=== PATIENT | female | born 1990 ===

== ENCOUNTER 2017-11-16 08:56 | Emergency (ER) | payer OTHER ==
[2017-11-16 09:16] VITALS: BP 136/80; PULSE 94; RESP 20; TEMP 99.7; O2SAT 99
[2017-11-16] MEDS ORDERED: Amoxicillin-Clav 875-125 mg Tab PO STA (09:34)
[2017-11-16] MEDS ORDERED: Amoxicillin-Clav 875-125 mg Tab PO ONE (09:42)
--- NOTE | 2017-11-16 09:47 | C.PDOC ---
History Of Present Illness 27 y/o female presents to the ER complaining of fever and throat pain which has been present for the past 2 days. Patient denies having nausea, vomiting, and diarrhea. Patient does not have any other complaints. Time Seen by Provider: 11/16/17 09:28 Chief Complaint (Nursing): Fever History Per: Patient History/Exam Limitations: no limitations Onset/Duration Of Symptoms: Days Current Symptoms Are (Timing): Still Present Associated Symptoms: Fever, Sore Throat Severity: Moderate Past Medical History Reviewed: Historical Data, Nursing Documentation, Vital Signs Vital Signs: Last Vital Signs Temp 99.7 F H 11/16/17 09:12 Pulse 94 H 11/16/17 09:12 Resp 20 11/16/17 09:12 BP 136/80 11/16/17 09:12 Pulse Ox 99 11/16/17 09:47 - Medical History PMH: Asthma Surgical History: No Surg Hx Family History: States: No Known Family Hx - Social History Hx Alcohol Use: Yes Hx Substance Use: No - Immunization History Hx Tetanus Toxoid Vaccination: Yes Hx Influenza Vaccination: No Hx Pneumococcal Vaccination: No Review Of Systems Except As Marked, All Systems Reviewed And Found Negative. Constitutional: Positive for: Fever ENT: Positive for: Throat Pain Gastrointestinal: Negative for: Nausea, Vomiting, Diarrhea Physical Exam - Physical Exam Appears: Non-toxic, No Acute Distress Skin: Normal Color, Warm Head: Atraumatic, Normacephalic Eye(s): bilateral: Normal Inspection, PERRL Ear(s): Bilateral: Normal Nose: Normal Oral Mucosa: Moist Throat: No Erythema, No Exudate, Other (enlarged right tonsil area, edema in right tonsil which comes to midline,no abscess, no hot potato voice ) Neck: Supple Chest: Symmetrical Cardiovascular: Rhythm Regular Respiratory: Normal Breath Sounds, No Accessory Muscle Use, No Rales, No Rhonchi , No Wheezing, Other (airway is patent) Extremity: Normal ROM Neurological/Psych: Oriented x3, Normal Speech, Normal Cognition, Normal Motor, Normal Sensation ED Course And Treatment O2 Sat by Pulse Oximetry: 99 (RA) Pulse Ox Interpretation: Normal Progress Note: Patient given Augmentin, Ultram, and PredniSONE. Medical Decision Making Medical Decision Making: tonsillitis vs early R peritonsillar abscess no hot potatoe voice airway normal return in AM for re-eval. Disposition Doctor Will See Patient In The: Office Counseled Patient/Family Regarding: Studies Performed, Diagnosis - Disposition Referrals: [facility] at [facility] [Outside] Jacob Fox MD [Staff Provider] - Disposition: HOME/ ROUTINE Disposition Time: 09:46 Condition: GOOD Additional Instructions: Augmentin dos veces al ector por 7 gilmore. Prednisona 40 mg diario por 4 gilmore mas- baja inflammacion Tramadol 50 mg (narcotico) 1-2 tabletas cada 4-6 horas deshaun necessario Pepcid 20 mg (baja acides del estomago) previene irritacion del estomago debido al Prednisona. Regressa manana pra re-evaluacion en el [facility] con Dr. Mckinley Puede seguir con Dr. Fox (otolaryngologo) especialista de las amigdalas- LLama para hacer rola. Regressa immediamente si tiene difficultad respirando por la garganta. Prescriptions: Amoxicillin/Clavulanate [Augmentin 875 MG-125 MG] 1 tab PO BID #13 tab Prednisone [Deltasone] 40 mg PO DAILY #8 tablet traMADol [Ultram] 50 mg PO Q6H PRN #20 tab PRN Reason: pain Instructions: Peritonsillar Abscess (ED), Tonsillitis (ED) Forms: [employer] (Turkish) Print Language: BOLIVIAN - Clinical Impression Clinical Impression: Tonsillitis - Scribe Statement The provider has reviewed the documentation as recorded by the Tyrese Butterfield Provider Attestation: All medical record entries made by the Carolynibe were at my direction and personally dictated by me. I have reviewed the chart and agree that the record accurately reflects my personal performance of the history, physical exam, medical decision making, and the department course for this patient. I have also personally directed, reviewed, and agree with the discharge instructions and disposition.
== END 2017-11-16 10:02 | disposition home or self-care (01) ==
LOC: C.ER 08:56
DX: J03.90 Acute tonsillitis, unspecified (principal)

== ENCOUNTER 2017-11-17 09:17 | Emergency (ER) | payer OTHER ==
[2017-11-17 09:33] VITALS: BP 127/81; PULSE 95; RESP 16; TEMP 98.9; O2SAT 100
--- NOTE | 2017-11-17 10:25 | C.PDOC ---
History Of Present Illness 27 y/o female presents to the ER to follow up for tonsillar inflammation after being seen yesterday in the ER. Patient states that she was prescribed Tramadol and Prednisone. Patient reports that she is taking her medications with good compliance. Patient does not have any other complaints. Time Seen by Provider: 11/17/17 10:22 Chief Complaint (Nursing): Wound Check History Per: Patient History/Exam Limitations: no limitations Onset/Duration Of Symptoms: Days Ago Current Symptoms Are (Timing): Still Present Severity: Moderate Past Medical History Reviewed: Historical Data, Nursing Documentation, Vital Signs Vital Signs: Last Vital Signs Temp 98.9 F 11/17/17 09:30 Pulse 95 H 11/17/17 09:30 Resp 16 11/17/17 09:30 BP 127/81 11/17/17 09:30 Pulse Ox 100 11/17/17 10:39 - Medical History PMH: Asthma Surgical History: No Surg Hx Family History: States: No Known Family Hx - Social History Hx Alcohol Use: Yes Hx Substance Use: No - Immunization History Hx Tetanus Toxoid Vaccination: Yes Hx Influenza Vaccination: No Hx Pneumococcal Vaccination: No Review Of Systems Except As Marked, All Systems Reviewed And Found Negative. Constitutional: Negative for: Fever, Chills ENT: Positive for: Other (tonsillar inflammation) Physical Exam - Physical Exam Appears: Non-toxic, No Acute Distress Skin: Normal Color, Warm Head: Atraumatic, Normacephalic Eye(s): bilateral: Normal Inspection Nose: Normal Oral Mucosa: Moist Throat: Other (enlarged erythematous right tonsil, not signicantly different from PE on Nov 16, 2017,) Lymphatic: Adenopathy (lymphadenopathy on right side) Extremity: Normal ROM Neurological/Psych: Oriented x3, Normal Speech, Normal Motor, Normal Sensation ED Course And Treatment O2 Sat by Pulse Oximetry: 100 (RA) Pulse Ox Interpretation: Normal Medical Decision Making Medical Decision Making: similar exam though pt much improved symptomatically no obvious tonsillar abscess outpatient f/u PRN Disposition Doctor Will See Patient In The: Office Counseled Patient/Family Regarding: Studies Performed, Diagnosis - Disposition Referrals: Jacob Fox MD [Staff Provider] - Disposition: HOME/ ROUTINE Disposition Time: 10:25 Condition: GOOD Additional Instructions: sigue yu tratamiento deshaun recetado charlie Umm muchos liquidos Regressa si las sintomas se empeoran. o' regressa con el Otolaryngologo deshaun necessario. Instructions: Tonsillitis (ED) Forms: [employer] (Telugu) Print Language: KAZAKH - Clinical Impression Clinical Impression: Tonsillitis - Scribe Statement The provider has reviewed the documentation as recorded by the Scribe Remington Butterfield Provider Attestation: All medical record entries made by the Scribe were at my direction and personally dictated by me. I have reviewed the chart and agree that the record accurately reflects my personal performance of the history, physical exam, medical decision making, and the department course for this patient. I have also personally directed, reviewed, and agree with the discharge instructions and disposition.
== END 2017-11-17 10:31 | disposition home or self-care (01) ==
LOC: C.ER 09:17
DX: J03.90 Acute tonsillitis, unspecified (principal)

== ENCOUNTER 2017-11-18 18:30 | Observation (INO) | payer OTHER ==
--- NOTE | 2017-11-18 19:15 | C.PDOC ---
History Of Present Illness <Gretta Alvarado - Last Filed: 11/18/17 21:36> <Vivien Vargas - Last Filed: 11/19/17 00:01> 27 yo female come in for re-evaluation of bria throat, swelling, dysphagia gradually developed for past few days. As per pt, was seen here in ED for past 2 days, taking abx, prednisone with worsening of sx. Otherwise, denies known trauma or injury, high fever, drooling, neck pain, dyspnea, CP, SOB, wheezing, abd. pain, V/D, back pian, UTI sx. Ambulate to ED for evaluation, not in any apparent distress. (Gretta Alvarado) History Per: Patient Onset/Duration Of Symptoms: Gradual <Gretta Alvarado - Last Filed: 11/18/17 21:36> <Vivien Vargas - Last Filed: 11/19/17 00:01> Time Seen by Provider: 11/18/17 18:59 Chief Complaint (Nursing): ENT Problem Past Medical History Reviewed: Historical Data, Nursing Documentation, Vital Signs - Medical History PMH: Asthma Surgical History: No Surg Hx - Social History Hx Tobacco Use: No Hx Alcohol Use: Yes Hx Substance Use: No - Immunization History Hx Tetanus Toxoid Vaccination: Yes Hx Influenza Vaccination: No Hx Pneumococcal Vaccination: No <Gretta Alvarado - Last Filed: 11/18/17 21:36> Surgical History: No Surg Hx Family History: States: No Known Family Hx - Social History Hx Tobacco Use: No Hx Substance Use: No <Vivien Vargas - Last Filed: 11/19/17 00:01> Vital Signs: Last Vital Signs Temp 98.1 F 11/18/17 22:14 Pulse 77 11/18/17 22:14 Resp 18 11/18/17 22:14 BP 100/61 11/18/17 22:14 Pulse Ox 98 11/18/17 22:14 Review Of Systems Except As Marked, All Systems Reviewed And Found Negative. Constitutional: Negative for: Fever, Chills ENT: Positive for: Mouth Swelling, Throat Pain, Throat Swelling. Negative for: Ear Discharge, Nose Discharge Cardiovascular: Negative for: Chest Pain Respiratory: Negative for: Cough, Shortness of Breath, Wheezing Gastrointestinal: Negative for: Nausea, Vomiting, Abdominal Pain, Diarrhea Genitourinary: Negative for: Dysuria Musculoskeletal: Negative for: Neck Pain, Arm Pain, Back Pain Skin: Negative for: Rash Neurological: Negative for: Altered Mental Status, Headache, Dizziness <Gretta Alvarado - Last Filed: 11/18/17 21:36> Physical Exam - Physical Exam Appears: Well, Non-toxic, No Acute Distress Skin: Normal Color, Warm, Dry, No Rash Head: Normacephalic Eye(s): bilateral: PERRL Ear(s): Bilateral: Normal Nose: No Flaring, No Discharge Oral Mucosa: Moist, No Drooling, No Trismus Tongue: No Swelling Lips: No Swelling Throat: No Drooling, Other (Diffuse right sided pharyngeal edema, erythema extends to Righ tonsil with enlargement and erythema. No exudate. uvual midline , no edema.) Neck: Supple, Other ((-) meningeal sign) Lymphatic: Adenopathy (Right sided anterior cervical, tender) Cardiovascular: Rhythm Regular, No Murmur, No JVD Respiratory: No Decreased Breath Sounds, No Accessory Muscle Use, No Stridor, No Wheezing Gastrointestinal/Abdominal: Soft, No Tenderness, No Distention, No Guarding Back: Normal Inspection Extremity: Normal ROM, No Deformity, No Swelling Neurological/Psych: Oriented x3, Normal Speech, Normal Motor, Normal Sensation, Normal Reflexes <Gretta Alvarado - Last Filed: 11/18/17 21:36> ED Course And Treatment - Laboratory Results Result Diagrams: 11/18/17 19:35 11/18/17 19:35 Lab Interpretation: No Acute Changes O2 Sat by Pulse Oximetry: 100 Pulse Ox Interpretation: Normal - CT Scan/US CT neck w/contrast Other Rad Studies (CT/US): Radiology Report Reviewed Progress Note: On re-eval, pt is awake,alert, not in any apparent distress. Fever improved, hemodynamicaly stable. Non-toxic. Tolerate Po well in ED. No evidence of dehydration. PulseOx 100% RA. ENT: no acute findings. neck: Supple , (-) meningeal sign. Lungs: CTA B/L, BS equal B/L. CVS: (+)S1S2, reg. Abd: benign. Neurologicaly intact. Blood work review review and appears normal. Pt has clinical findings c/w Influenza-like illness. Pt advised on course of ds. ref. to F/u with PMD in 2-3 days for re-eval. return if any new changes. <Gretta Alvarado - Last Filed: 11/18/17 21:36> - Laboratory Results Result Diagrams: 11/18/17 19:35 11/18/17 19:35 <Vivien Vargas - Last Filed: 11/19/17 00:01> Medical Decision Making <Gretta Alvarado - Last Filed: 11/18/17 21:36> <Vivien Vargas - Last Filed: 11/19/17 00:01> Medical Decision Making: Pt with R sided peritonsillar abscess.Case discussed with Dr Fox who wishes pt admitted to medicine,suggests decadron,cleomycin.Will consult in AM (Vivien Vargas) Disposition <Gretta Alvarado - Last Filed: 11/18/17 21:36> - Disposition Disposition Time: 00:01 <Vivien Vargas - Last Filed: 11/19/17 00:01> - Disposition Disposition: HOSPITALIZED Condition: GOOD Forms: [facility] (Ukrainian) - Clinical Impression Clinical Impression: Peritonsillar abscess Decision To Admit <Gretta lAvarado - Last Filed: 11/18/17 21:36> - Pt Status Changed To: Hospital Disposition Of: Observation - . Bed Request Type: Regular Admitting Physician: Robbie Abbott <Vivien Vargas - Last Filed: 11/19/17 00:01> - . Patient Diagnosis: Peritonsillar abscess
[2017-11-18] MEDS ORDERED: Sodium Chloride 0.9% 1,000 ML IV ONE (19:25)
[2017-11-18 19:37] LABS: BASO % 0.2 % (0.0-2.0); EOS % 0.2 % (0.0-4.0); HEMOGLOBIN 13.9 g/dL (11.0-16.0); LYMPH # 1.7 K/uL (1.0-4.3); LYMPH % 21.4 % (20.0-40.0); MEAN CELL VOLUME 89.7 fL (81.0-99.0); MEAN CORPUSCULAR HEMOGLOBIN 31.4 pg (27.0-31.0); MEAN PLATELET VOLUME 9.1 fL (7.2-11.7); MONO # 0.7 K/uL (0.0-0.8); MONO % 8.1 % (0.0-10.0); NEUT # 5.7 K/uL (1.8-7.0); NEUT % 70.1 % (50.0-75.0); RBC 4.42 Mil/uL (3.80-5.20); RED CELL DISTRIBUTION WIDTH 13.1 % (11.5-14.5); WHITE BLOOD COUNT 8.2 K/uL (4.8-10.8)
[2017-11-18 19:49] LABS: BLOOD UREA NITROGEN 8 mg/dL (7-17); CALCIUM 9.4 mg/dl (8.6-10.4); GFR AFRICAN-AMERICAN > 60; GFR NON-AFRICAN AMERICAN > 60
[2017-11-18] MEDS ORDERED: Clindamycin 600mg/50ml NS 600 MG/50 ML BAG IVPB ONE (20:12)
[2017-11-18] MEDS ORDERED: Iodixanol 320 MG/ML 100 ML BOTTLE IV ONE (21:00)
[2017-11-18 22:15] VITALS: TEMP 98.1
--- NOTE | 2017-11-18 22:54 | CT ---
EXAM: CT Neck With Intravenous Contrast CLINICAL HISTORY: 27 years old, female; Signs and symptoms; Mass, lump, or swelling in neck; Additional info: Right peritonsillar swelling R/O abscess TECHNIQUE: Axial computed tomography images of the neck with intravenous contrast. All CT scans at this facility use one or more dose reduction techniques, viz.: automated exposure control; ma/kV adjustment per patient size (including targeted exams where dose is matched to indication; i.e. head); or iterative reconstruction technique. Coronal and sagittal reformatted images were created and reviewed. CONTRAST: 100 mL of visipaque 320 administered intravenously. COMPARISON: No relevant prior studies available. FINDINGS: Nasopharynx: Unremarkable. Oropharynx: Enlargement of palatine tonsils, right greater than left. 2.6 x 1.5 by 1.8 cm peripherally enhancing fluid collection within right peritonsillar region. Mild stranding/edema within right parapharyngeal space. Hypopharynx: Mild mucosal thickening of right hypopharynx. Larynx: Unremarkable. Normal epiglottis. Trachea: Unremarkable. Retropharyngeal space: Unremarkable. Submandibular/parotid glands: Unremarkable. Glands are normal in size. Thyroid: Unremarkable. No enlarged or calcified nodules. Bones/joints: No acute fracture. Soft tissues: Unremarkable. Vasculature: No acute findings. Lymph nodes: Few mildly enlarged right cervical lymph nodes. Sinuses: Scattered minimal mucosal thickening. No air-fluid levels. Mastoid air cells: No mastoid effusion. Lung apices: Unremarkable as visualized. IMPRESSION: 1. Tonsillitis/pharyngitis with right peritonsillar abscess. 2. Incidental/non-acute findings are described above.
[2017-11-18] MEDS ORDERED: Lidocaine 1%/Epinephrine 1:100000 30 ml vial IJ ONE (23:13)
[2017-11-18] MEDS ORDERED: Dexamethasone 4 mg/1 ml ONE (23:33)
--- NOTE | 2017-11-18 23:40 | CP.PCM.HP ---
<ArredondoShanelle martinMynor - Last Filed: 11/19/17 02:36> History of Present Illness - History of Present Illness History of Present Illness: CC: " Sore throat" HPI: 27 year old female with past medical history of asthma comes to the ED for a sore throat. She states it started on Tuesday and she came to the ED and they sent her home with Augmentin for 7 days. She came back on Tuesday and they again sent her home to continue with the antibiotics and medication as needed for pain. She states today she was not able to swallow her throat hurt so badly. She was not able to eat or drink anything today. She describes the pain as pulsating about a 9-10/10. She states she has had fever and chills. She denies nausea, vomiting, diarrhea or constipation. PMD: None Past Medical history: Asthma Past Surgical history: denies Medications: Albuterol Allergies: NKDA Social History: denies smoking, drinks alcohol occasionally; denies illicit drug use; lives with a friend at the moment; worked previously at a [employer]. Present on Admission - Present on Admission Any Indicators Present on Admission: No Review of Systems - Constitutional Constitutional: Chills, Fever - EENT Eyes: absent: Change in Vision Ears: absent: Dizziness Nose/Mouth/Throat: Sore Throat. absent: Nasal Congestion - Cardiovascular Cardiovascular: absent: Chest Pain, Dyspnea - Respiratory Respiratory: absent: Cough, Dyspnea - Gastrointestinal Gastrointestinal: absent: Constipation, Diarrhea, Nausea, Vomiting - Genitourinary Genitourinary: absent: Dysuria - Neurological Neurological: absent: Dizziness, Headaches - Endocrine Endocrine: absent: Fatigue, Palpitations Past Patient History - Infectious Disease Hx of Infectious Diseases: None - Past Social History Smoking Status: Never Smoked - PULMONARY Hx Asthma: Yes - PSYCHIATRIC Hx Substance Use: No - SURGICAL HISTORY Hx Surgeries: No - ANESTHESIA Hx Anesthesia: Yes Hx Anesthesia Reactions: No Meds Allergies/Adverse Reactions: Allergies Allergy/AdvReac Type Severity Reaction Status Date / Time No Known Allergies Allergy Verified 11/18/17 19:00 Physical Exam - Constitutional Appears: No Acute Distress - Head Exam Head Exam: ATRAUMATIC, NORMAL INSPECTION - Eye Exam Eye Exam: EOMI, Normal appearance - ENT Exam ENT Exam: Mucous Membranes Moist, Normal External Ear Exam, TM's Normal Bilaterally. absent: Normal Exam, Normal Oropharynx (left tonsil enlarged and red; no exudate seen) - Neck Exam Neck exam: Positive for: Lymphadenopathy (cervical lymphadenopathy ) - Respiratory Exam Respiratory Exam: Clear to Auscultation Bilateral, NORMAL BREATHING PATTERN. absent: Rales, Rhonchi, Wheezes - Cardiovascular Exam Cardiovascular Exam: REGULAR RHYTHM, RRR, +S1, +S2 - GI/Abdominal Exam GI & Abdominal Exam: Normal Bowel Sounds, Soft. absent: Tenderness - Extremities Exam Extremities exam: Positive for: normal inspection - Neurological Exam Neurological exam: Alert, Oriented x3 - Psychiatric Exam Psychiatric exam: Normal Affect, Normal Mood - Skin Skin Exam: Normal Color, Warm Results - Vital Signs Recent Vital Signs: Last Vital Signs Temp 98.1 F 11/18/17 22:14 Pulse 77 11/18/17 22:14 Resp 18 11/18/17 22:14 BP 100/61 11/18/17 22:14 Pulse Ox 98 11/18/17 22:14 - Labs Result Diagrams: 11/18/17 19:35 11/18/17 19:35 Labs: Laboratory Results - last 24 hr 11/18/17 11/18/17 19:35 19:35 WBC 8.2 RBC 4.42 Hgb 13.9 Hct 39.6 MCV 89.7 MCH 31.4 H MCHC 35.0 RDW 13.1 Plt Count 213 MPV 9.1 Neut % (Auto) 70.1 Lymph % (Auto) 21.4 Harlan % (Auto) 8.1 Eos % (Auto) 0.2 Baso % (Auto) 0.2 Neut # (Auto) 5.7 Lymph # (Auto) 1.7 Harlan # (Auto) 0.7 Eos # (Auto) 0.0 Baso # (Auto) 0.0 Sodium 137 Potassium 3.5 L Chloride 95 L Carbon Dioxide 31 H Anion Gap 14 BUN 8 Creatinine 0.6 L Est GFR ( Amer) > 60 Est GFR (Non-Af Amer) > 60 Random Glucose 109 H Calcium 9.4 Assessment & Plan - Assessment and Plan (Free Text) Plan: 1.) Right Peritonsillar abscess - Soft Tissue Neck CT: Tonsillitis/pharyngitis with right peritonsillar abscess. - ENT Consult: Dr. Fox --> help appreciated - Clindamycin 600mg q6h - Decadron 4mg q12h - Toradol 30mg q6 prn for pain - NS @100cc/hr - NPO - Pre-op Clearance if needed - f/u EKG - f/u PT/INR - f/u chest xray 2.) History of Asthma - Duonebs q6 prn 3.) Prophylaxis - scds - protonix 40mg daily Case discussed with Dr. Milena Arredondo PGY-1 <Robbie Abbott - Last Filed: 11/19/17 06:18> Results - Vital Signs Recent Vital Signs: Last Vital Signs Temp 98.1 F 11/19/17 00:34 Pulse 68 11/19/17 00:34 Resp 20 11/19/17 00:34 BP 103/67 11/19/17 00:34 Pulse Ox 99 11/19/17 00:34 - Labs Result Diagrams: 11/18/17 19:35 11/18/17 19:35 Labs: Laboratory Results - last 24 hr 11/18/17 11/18/17 19:35 19:35 WBC 8.2 RBC 4.42 Hgb 13.9 Hct 39.6 MCV 89.7 MCH 31.4 H MCHC 35.0 RDW 13.1 Plt Count 213 MPV 9.1 Neut % (Auto) 70.1 Lymph % (Auto) 21.4 Harlan % (Auto) 8.1 Eos % (Auto) 0.2 Baso % (Auto) 0.2 Neut # (Auto) 5.7 Lymph # (Auto) 1.7 Harlan # (Auto) 0.7 Eos # (Auto) 0.0 Baso # (Auto) 0.0 Sodium 137 Potassium 3.5 L Chloride 95 L Carbon Dioxide 31 H Anion Gap 14 BUN 8 Creatinine 0.6 L Est GFR ( Amer) > 60 Est GFR (Non-Af Amer) > 60 Random Glucose 109 H Calcium 9.4 Assessment & Plan - Date & Time Date: 11/19/17 (I have seen and examined the patient. I agree with the findings and plan of care as documented by Dr. Arredondo. Patient with peritonsillar abscess. Consult to ENT. Clinda, Decadron, symptomatic treatment , NPO. Medically optimize prior to any procedure to be done. Monitor for acute changes.) Time: 06:17 Attending/Attestation - Attestation I have personally seen and examined this patient.: Yes I have fully participated in the care of the patient.: Yes I have reviewed all pertinent clinical information: Yes
[2017-11-19] MEDS ORDERED: Albuterol-Ipratrop 3 mg / 0.5 (3 ml) UD INH PRN (00:18)
[2017-11-19] MEDS ORDERED: Sodium Chloride 0.9% 1,000 ML IV SCH (00:30)
[2017-11-19 02:27] VITALS: RESP 20
[2017-11-19 07:12] LABS: BASO % 0.1 % (0.0-2.0); HEMOGLOBIN 12.8 g/dL (11.0-16.0); LYMPH # 0.8 K/uL (1.0-4.3); LYMPH % 15.3 % (20.0-40.0); MEAN CELL VOLUME 91.4 fL (81.0-99.0); MEAN CORPUSCULAR HEMOGLOBIN 32.1 pg (27.0-31.0); MEAN CORPUSCULAR HGB CONC 35.1 g/dL (33.0-37.0); MEAN PLATELET VOLUME 10.1 fL (7.2-11.7); MONO # 0.1 K/uL (0.0-0.8); MONO % 1.5 % (0.0-10.0); NEUT # 4.3 K/uL (1.8-7.0); NEUT % 83.1 % (50.0-75.0); RBC 3.99 Mil/uL (3.80-5.20); RED CELL DISTRIBUTION WIDTH 12.9 % (11.5-14.5); WHITE BLOOD COUNT 5.2 K/uL (4.8-10.8)
[2017-11-19 07:16] LABS: INR 1.3; PROTHROMBIN TIME 14.7 SECONDS (9.7-12.2)
[2017-11-19] MEDS ORDERED: Lidocaine 1%/Epinephrine 1:100000 30 ml vial IJ ONE (08:00)
[2017-11-19 08:02] VITALS: BP 100/62; PULSE 67; O2SAT 97
[2017-11-19 08:23] LABS: ALB/GLOB RATIO 1.1 (1.0-2.1); ALBUMIN 3.9 g/dL (3.5-5.0); ALT/SGPT 20 U/L (9-52); AST/SGOT 20 U/L (14-36); BLOOD UREA NITROGEN 11 mg/dL (7-17); CALCIUM 9.2 mg/dl (8.6-10.4); GFR AFRICAN-AMERICAN > 60; GFR NON-AFRICAN AMERICAN > 60; MAGNESIUM 1.8 mg/dL (1.6-2.3)
--- NOTE | 2017-11-19 09:59 | CP.PCM.DIS ---
Provider - Provider Date of Admission: 11/18/17 23:13 Attending physician: Robbie Abbott MD Primary care physician: none Consults: Dr. Fox - ENT Time Spent in preparation of Discharge (in minutes): 35 Diagnosis - Discharge Diagnosis (1) Peritonsillar abscess Status: Acute Hospital Course - Lab Results Lab Results: Most Recent Lab Values WBC 5.2 K/uL (4.8-10.8) 11/19/17 06:39 RBC 3.99 Mil/uL (3.80-5.20) 11/19/17 06:39 Hgb 12.8 g/dL (11.0-16.0) 11/19/17 06:39 Hct 36.5 % (34.0-47.0) 11/19/17 06:39 MCV 91.4 fL (81.0-99.0) 11/19/17 06:39 MCH 32.1 pg (27.0-31.0) H 11/19/17 06:39 MCHC 35.1 g/dL (33.0-37.0) 11/19/17 06:39 RDW 12.9 % (11.5-14.5) 11/19/17 06:39 Plt Count 208 K/uL (130-400) 11/19/17 06:39 MPV 10.1 fL (7.2-11.7) 11/19/17 06:39 Neut % (Auto) 83.1 % (50.0-75.0) H 11/19/17 06:39 Lymph % (Auto) 15.3 % (20.0-40.0) L 11/19/17 06:39 Monona % (Auto) 1.5 % (0.0-10.0) 11/19/17 06:39 Eos % (Auto) 0.0 % (0.0-4.0) 11/19/17 06:39 Baso % (Auto) 0.1 % (0.0-2.0) 11/19/17 06:39 Neut # (Auto) 4.3 K/uL (1.8-7.0) 11/19/17 06:39 Lymph # (Auto) 0.8 K/uL (1.0-4.3) L 11/19/17 06:39 Monona # (Auto) 0.1 K/uL (0.0-0.8) 11/19/17 06:39 Eos # (Auto) 0.0 K/uL (0.0-0.7) 11/19/17 06:39 Baso # (Auto) 0.0 K/uL (0.0-0.2) 11/19/17 06:39 PT 14.7 SECONDS (9.7-12.2) H 11/19/17 06:39 INR 1.3 11/19/17 06:39 APTT 31 SECONDS (21-34) 11/19/17 06:39 Sodium 137 mmol/L (132-148) 11/19/17 06:39 Potassium 4.4 mmol/L (3.6-5.2) 11/19/17 06:39 Chloride 101 mmol/L (98-107) 11/19/17 06:39 Carbon Dioxide 26 mmol/L (22-30) 11/19/17 06:39 Anion Gap 15 (10-20) 11/19/17 06:39 BUN 11 mg/dL (7-17) 11/19/17 06:39 Creatinine 0.6 mg/dL (0.7-1.2) L 11/19/17 06:39 Est GFR ( Amer) > 60 11/19/17 06:39 Est GFR (Non-Af Amer) > 60 11/19/17 06:39 Random Glucose 125 mg/dL (65-105) H 11/19/17 06:39 Calcium 9.2 mg/dl (8.6-10.4) 11/19/17 06:39 Phosphorus 3.9 mg/dL (2.5-4.5) 11/19/17 06:39 Magnesium 1.8 mg/dL (1.6-2.3) 11/19/17 06:39 Total Bilirubin 0.6 mg/dL (0.2-1.3) 11/19/17 06:39 AST 20 U/L (14-36) 11/19/17 06:39 ALT 20 U/L (9-52) 11/19/17 06:39 Alkaline Phosphatase 76 U/L (38-126) 11/19/17 06:39 Total Protein 7.5 g/dL (6.3-8.3) 11/19/17 06:39 Albumin 3.9 g/dL (3.5-5.0) 11/19/17 06:39 Globulin 3.7 gm/dL (2.2-3.9) 11/19/17 06:39 Albumin/Globulin Ratio 1.1 (1.0-2.1) 11/19/17 06:39 Urine HCG, Qual Negative (NEGATIVE) 11/19/17 09:16 - Hospital Course Hospital Course: PMD: None Past Medical history: Asthma Past Surgical history: denies Medications: Albuterol Allergies: NKDA Social History: denies smoking, drinks alcohol occasionally; denies illicit drug use; lives with a friend at the moment; worked previously at a [employer]. On admission: 27 year old female with past medical history of asthma comes to the ED for a sore throat. She states it started on Tuesday and she came to the ED and they sent her home with Augmentin for 7 days. She came back on Tuesday and they again sent her home to continue with the antibiotics and medication as needed for pain. She states today she was not able to swallow her throat hurt so badly. She was not able to eat or drink anything today. She describes the pain as pulsating about a 9-10/10. She states she has had fever and chills. She denies nausea, vomiting, diarrhea or constipation. During hospital stay: Soft Tissue Neck CT showed Tonsillitis/pharyngitis with right peritonsillar abscess. Dr. Fox was consulted and performed and I/D of this abscess on 11/19. Patient was given toradol for pain control. She was given Clindamycin during her stay. She was also given decadron to reduce swelling. Patient is stable for discharge home today. She is to follow up with her primary care within one week of discharge for post hospital care. She is also to call and make an appointment to follow up with Dr. Fox for the abscess in her throat within one week. She is to continue taking the Augmentin (antibiotic ) for 7 more days. She has 3 days left and we will write for 4 more days which she will need to excelsior picker from the pharmacy. She is also to take a probiotic along with the antibiotic which she can buy over the counter. Patient is to continue liquid diet today then switch to softer foods tomorrow. She is to return to the ER if she can't tolerate oral intake, or if she develops fever/ chills. All instructions explained to the patient and she agrees. Discharge Exam - Head Exam Head Exam: ATRAUMATIC, NORMAL INSPECTION - Eye Exam Eye Exam: EOMI Pupil Exam: NORMAL ACCOMODATION - ENT Exam Additional comments: tenderness R neck region - Respiratory Exam Respiratory Exam: Clear to PA & Lateral, NORMAL BREATHING PATTERN. absent: Respiratory Distress - Cardiovascular Exam Cardiovascular Exam: REGULAR RHYTHM, +S1, +S2 - GI/Abdominal Exam GI & Abdominal Exam: Normal Bowel Sounds, Soft. absent: Distended, Firm, Guarding - Extremities Exam Extremities exam: normal inspection - Back Exam Back exam: NORMAL INSPECTION - Neurological Exam Neurological exam: Alert, CN II-XII Intact, Normal Gait, Oriented x3 - Psychiatric Exam Psychiatric exam: Normal Affect, Normal Mood - Skin Skin Exam: Dry, Intact, Normal Color Discharge Plan - Discharge Medications Prescriptions: Amoxicillin/Clavulanate [Augmentin 875 MG-125 MG Tab] 1 tab PO BID #8 tab - Follow Up Plan Condition: GOOD Disposition: HOME/ ROUTINE Instructions: Amoxicillin/Clavulanate Potassium (By mouth), Abscess (GEN), Incision and Drainage (DC) Additional Instructions: Patient is stable for discharge home. She is to follow up with her primary care within one week of discharge for post hospital care. She is also to call and make an appointment to follow up with Dr. Fox for the abscess in her throat within one week. She is to continue taking the Augmentin (antibiotic) for 7 more days. She has 3 days left and we will write for 4 more days which she will need to excelsior picker from the pharmacy. She is also to take a probiotic along with the antibiotic which she can buy over the counter. Patient is to continue liquid diet today then switch to softer foods tomorrow. She is to return to the ER if she can't tolerate oral intake, or if she develops fever/chills. All instructions explained to the patient and she agrees. El paciente est estable para el caryl domiciliaria. Stephanie debe realizar un seguimiento con yu atencin primaria dentro de lennie semana del carly para recibir atencin hospitalaria posterior. Stephanie tambin debe llamar y hacer lennie rola para hacer un seguimiento con el Dr. Fox para el absceso en la garganta dentro de lennie semana. Stephanie debe continuar tomando Augmentin (antibitico) por 7 alcantara ms. Le quedan 3 alcantara y le escribiremos edgar 4 alcantara ms, que deber retirar de la farmacia. Stephanie tambin debe yarelis un probitico junto con el antibitico que puede comprar sin receta mdica. El paciente debe continuar la dieta lquida hoy y luego cambiar a alimentos ms blandos maana. Stephanie debe regresar a la vincent de emergencias si no puede tolerar la ingesta oral o si desarrolla fiebre / escalofros. Todas las instrucciones se explican a la paciente y stephanie est de acuerdo. Referrals: [facility] [Outside] Jacob Fox MD [Staff Provider] -
[2017-11-19] MEDS ORDERED: Dexamethasone 4 mg/1 ml IV SCH (10:00)
[2017-11-19] MEDS ORDERED: Pneumococcal 23-Valent Vaccine IM ONE (10:36)
[2017-11-19] MEDS ORDERED: Influenza Vaccine 60 mcg/0.5 mL SYR (4YR UP) IM ONE (10:45)
--- NOTE | 2017-11-19 11:06 | RAD ---
HISTORY: pre op COMPARISON: No prior. FINDINGS: LUNGS: No focal consolidation. The bronchovascular markings appear increased which may in part be due to due to semi-erect patient positioning and possibly diminished lung volumes. PLEURA: No significant pleural effusion identified, no pneumothorax apparent. CARDIOVASCULAR: Normal. OSSEOUS STRUCTURES: No significant abnormalities. VISUALIZED UPPER ABDOMEN: Normal. OTHER FINDINGS: None. IMPRESSION: No focal consolidation. The bronchovascular markings appear increased which may in part be due to due to semi-erect patient positioning and possibly diminished lung volumes.
--- NOTE | 2017-11-19 11:45 | OP ---
PROCEDURE DATE: 11/19/2017 PREOPERATIVE DIAGNOSIS: Right peritonsillar abscess. POSTOPERATIVE DIAGNOSIS: Right peritonsillar abscess. PROCEDURE: Incision and drainage of right peritonsillar abscess. SIGNIFICANT FINDINGS: Right peritonsillar abscess. DESCRIPTION OF PROCEDURE: The patient was placed in the supine position. The right peritonsillar area was injected with lidocaine with epinephrine. A #11 blade was used to make an incision in the right peritonsillar area. Pus was noted in the right peritonsillar area. dissection was done, loculations were broken. Bleeding was controlled with time. The patient tolerated the procedure well. Jacob Fox MD
== END 2017-11-19 11:29 | disposition home or self-care (01) ==
LOC: C.ER 18:30 → C.5S 23:13
PROVIDERS: ADMIT Family Medicine; ATTEND Family Medicine
DX: J36 Peritonsillar abscess (principal); J45.909 Unspecified asthma, uncomplicated; Z23 Encounter for immunization
CPT/HCPCS: 36415; 70491; 71045; 80048; 80053; 83735; 84100; 84703; 85025; 85610; 85730; 87040; 90674; 90732; 96361; 96365; 96366; 96375; 99284; C9113; G0008; G0009; G0378; J1100; J1885; J2930; J7040; Q9967

== ENCOUNTER 2018-09-16 20:16 | Emergency (ER) | payer OTHER ==
[2018-09-16 20:29] VITALS: O2SAT 99
[2018-09-16] MEDS ORDERED: Sodium Chloride 0.9% 1,000 ML IV ONE (20:36)
--- NOTE | 2018-09-16 20:38 | C.PDOC ---
History Of Present Illness 28 year old female presents to the ED c/o hypogastric abd vaginal bleeding that started today. Patient states her LMP was on June, patient reports she is . Patient also c/o mild headache. Patient denies fever, chills, nausea, vomit, diarrhea, rash, back pain, dysuria, hematuria, weakness, numbness. Chief Complaint (Nursing): Female Genitourinary History Per: Patient History/Exam Limitations: no limitations Onset/Duration Of Symptoms: Hrs Current Symptoms Are (Timing): Still Present Quality Of Discomfort: "Pain" Associated Symptoms: denies: Nausea, Vomiting, Diarrhea, Urinary Symptoms Recent travel outside of the [place]: No Additional History Per: Patient Abnormal Vaginal Bleeding: Yes Last Menstral Period: June Past Medical History Reviewed: Historical Data, Nursing Documentation, Vital Signs Vital Signs: Last Vital Signs Temp 98.2 F 09/16/18 20:21 Pulse 85 09/16/18 20:21 Resp 16 09/16/18 20:21 BP 124/79 09/16/18 20:21 Pulse Ox 99 09/16/18 20:21 - Medical History PMH: Asthma Denies: Chronic Kidney Disease Surgical History: No Surg Hx Family History: States: Unknown Family Hx - Social History Hx Tobacco Use: No Hx Alcohol Use: No Hx Substance Use: No - Immunization History Hx Tetanus Toxoid Vaccination: Yes Hx Influenza Vaccination: No Hx Pneumococcal Vaccination: No Review Of Systems Constitutional: Negative for: Fever, Chills Cardiovascular: Negative for: Chest Pain Respiratory: Negative for: Cough, Shortness of Breath Gastrointestinal: Positive for: Abdominal Pain. Negative for: Nausea, Vomiting, Diarrhea Genitourinary: Positive for: Vaginal Bleeding. Negative for: Dysuria, Vaginal Discharge Musculoskeletal: Negative for: Back Pain Neurological: Positive for: Headache. Negative for: Weakness, Numbness, Dizziness Physical Exam - Physical Exam Appears: Non-toxic, No Acute Distress Skin: Normal Color, Warm, Dry Head: Atraumatic, Normacephalic Eye(s): bilateral: Normal Inspection Neck: Normal ROM, Supple Chest: Symmetrical Cardiovascular: Rhythm Regular Respiratory: Normal Breath Sounds, No Rales, No Rhonchi, No Wheezing Gastrointestinal/Abdominal: Soft, Tenderness (mild hypogastric, RLQ), No Guarding, No Rebound Pelvic: No Cervical Motion Tenderness, No Cervix Open (closed), No Adnexal Tenderness, Other (minimal bllod in the vault, no active bleeding) Extremity: Normal ROM, No Tenderness, No Swelling Neurological/Psych: Oriented x3, Normal Speech, Normal Cognition Gait: Steady ED Course And Treatment - Laboratory Results Result Diagrams: 09/16/18 20:54 09/16/18 20:54 O2 Sat by Pulse Oximetry: 99 (ON RA) Pulse Ox Interpretation: Normal - CT Scan/US Abdomen US Other Rad Studies (CT/US): Read By Radiologist, Radiology Report Reviewed CT/US Interpretation: EXAM: US Abdomen, Right lower Quadrant. CLINICAL HISTORY: Rlq tenderness. TECHNIQUE: Multiple images of the right lower quadrant were acquired using grayscale and color flow imaging. COMPARISON: None provided. FINDINGS: Reason for study: Right lower quadrant pain, rule out appendicitis. Bowel peristalsis was identified. The appendix is not identified with certainty. IMPRESSION: Bowel peristalsis was identified. The appendix is not identified with certainty. . Electronically signed on Sep 16, 2018 10:29:40 PM EST by: Jan Zaman M.D., Certified by ABR Pelvic US Other Rad Studies (CT/US): Read By Radiologist, Radiology Report Reviewed CT/US Interpretation: CLINICAL HISTORY: /bleeding. The last menstrual period was on 07/01/2018. The patient is G3, P2. Beta HCG is pending. TECHNIQUE: Realtime sonographic images were obtained in multiple projections. Color Doppler imaging was obtained. COMMENTS: A single intrauterine is identified. heart motion is not detected. No yolk sac is identified. No pole identified. Mean gestational sac diameter is 2.04 cm, 6 week 4 days. The uterus is anteverted measuring 10.4 x 5.3 x 7.8 cm. The cervical length is 3.6 cm. There is no evidence of free fluid within the pelvic cul-de-sac. The right ovary measures 3 x 2.2 x 2.2 cm and the left ovary measures 3.2 x 2 x 3.2 cm. Both ovaries are free of solid or cystic mass. Blood flow is demonstrated within both ovaries. Small subchorionic hemorrhage is measuring 1.9 x 0.8 x 1.2 cm. IMPRESSION: 1. Single intrauterine gestation, 6 weeks 4 days. No yolk sac or pole identified. demise/missed is suspected. Please correlate with beta HCG. 2. Small subchorionic hemorrhage. . Electronically signed on Sep 16, 2018 10:48:45 PM EST by: Navid Ochoa M.D., DALIA Certified By ABR & CBC[facility]. Fellowship Trained MRI and CT Specialist. Medical Decision Making Medical Decision Making: Plan: * Labs * IV fluids * UA * Pelvic US Disposition Counseled Patient/Family Regarding: Diagnosis - Disposition Referrals: [facility] [Outside] Disposition: HOME/ ROUTINE Disposition Time: 22:54 Condition: STABLE Instructions: Threatened Miscarriage (DC), Bleeding With (DC) Forms: [employer] (Indonesian), Gen Discharge Inst Estonian Print Language: ITALIAN - POA Present On Arrival: None - Clinical Impression Clinical Impression: Threatened in early - Scribe Statement The provider has reviewed the documentation as recorded by the Scribe Hiram Salinas All medical record entries made by the Scribe were at my direction and pe rsonally dictated by me. I have reviewed the chart and agree that the record accurately reflects my personal performance of the history, physical exam, medical decision making, and the department course for this patient. I have also personally directed, reviewed, and agree with the discharge instructions and disposition.
[2018-09-16 20:59] LABS: BASO % 0.2 % (0.0-2.0); EOS # 0.5 K/uL (0.0-0.7); EOS % 6.6 % (0.0-4.0); HEMOGLOBIN 12.6 g/dL (11.0-16.0); LYMPH # 2.3 K/uL (1.0-4.3); LYMPH % 33.8 % (20.0-40.0); MEAN CELL VOLUME 89.2 fL (81.0-99.0); MEAN CORPUSCULAR HEMOGLOBIN 29.9 pg (27.0-31.0); MEAN CORPUSCULAR HGB CONC 33.5 g/dL (33.0-37.0); MEAN PLATELET VOLUME 9.6 fL (7.2-11.7); MONO # 0.5 K/uL (0.0-0.8); MONO % 7.8 % (0.0-10.0); NEUT # 3.6 K/uL (1.8-7.0); NEUT % 51.6 % (50.0-75.0); NRBC % 0.1 % (0.0-2.0); RBC 4.23 Mil/uL (3.80-5.20); RED CELL DISTRIBUTION WIDTH 13.4 % (11.5-14.5); WHITE BLOOD COUNT 6.9 K/uL (4.8-10.8)
[2018-09-16 21:06] LABS: INR 1.1; PROTHROMBIN TIME 11.8 SECONDS (9.7-12.2)
[2018-09-16 21:10] LABS: ALB/GLOB RATIO 1.5 (1.0-2.1); ALBUMIN 4.5 g/dL (3.5-5.0); ALT/SGPT 50 U/L (9-52); AST/SGOT 35 U/L (14-36); BLOOD UREA NITROGEN 5 mg/dL (7-17); CALCIUM 9.3 mg/dl (8.6-10.4); GFR NON-AFRICAN AMERICAN > 60
[2018-09-16] MEDS ORDERED: Sodium Chloride 0.9% 1,000 ML ONE (21:12)
[2018-09-16 23:10] VITALS: BP 110/70; PULSE 90; RESP 14; TEMP 98.7
--- NOTE | 2018-09-17 09:10 | US ---
Limited right lower quadrant abdominal ultrasound HISTORY: Right lower quadrant abdominal tenderness. COMPARISON: None available. Technique: Real-time sonography was performed through the right lower quadrant of the abdomen. Findings: Limited sonographic evaluation through the right lower quadrant. Appendix not well visualized. Impression: Appendix not well visualized on this limited right lower quadrant abdominal ultrasound. Underlying acute appendicitis cannot be excluded on the basis of these images. Clinical correlation. A preliminary report was generated at 10:29 p.m. on 09/16/[address] Jan Zaman from [email or web address].
--- NOTE | 2018-09-17 09:15 | US ---
Pelvic ultrasound HISTORY: . Bleeding. COMPARISON: None available. Technique: Real-time sonography was performed through the pelvis utilizing transabdominal and transvaginal techniques. Findings: Uterus: 10.4 x 5.3 x 7.8 centimeters. Heterogeneous echotexture. Anteverted. Cervix measures 3.6 centimeters. Intrauterine gestational sac measuring 2.0 centimeters corresponding to a gestational age of 6 weeks and 4 days. No yolk sac or pole identified. No free fluid in the pelvic cul-de-sac. Suggestion of adjacent subchorionic hemorrhage measuring up to 1.9 x 0.8 x 1.2 centimeters. Right ovary: 3.0 x 2.2 x 2.2 centimeters. Normal flow. Left ovary: 3.2 x 2.0 x 3.2 centimeters. Normal flow. LMP of 07/01/2018. Estimated gestational age by LMP of 11 weeks and 0 days Impression: 1. Intrauterine gestational sac measuring 2.0 centimeters corresponding to a gestational age of 6 weeks and 4 days. No discrete yolk sac or pole identified. Clinical correlation. 2. Small amount of subchorionic hemorrhage adjacent to the gestational sac measuring up to 1.9 centimeters. Limited 1st trimester ultrasound for viability purposes only. Continued interval followup with serial ultrasound, serial HCG levels, and gynecological consultation would be helpful if clinically indicated. A preliminary report was generated at 10:48 p.m. on 09/16/[address] Navid Ochoa from [employer].
== END 2018-09-16 23:09 | disposition home or self-care (01) ==
LOC: C.ER 20:16
DX: O20.0 Threatened abortion (principal); Z3A.01 Less than 8 weeks gestation of pregnancy
CPT/HCPCS: 76705; 76805; 76817; 80053; 84702; 84703; 85025; 85610; 85730; 86850; 86900; 99284; J7030

== ENCOUNTER 2018-09-22 01:17 | Inpatient (IN) | payer OTHER ==
[2018-09-22] MEDS ORDERED: Sodium Chloride 0.9% 1,000 ML IV STA (01:31)
[2018-09-22] MEDS ORDERED: Morphine 4 MG/ML VIAL ONE (01:34)
[2018-09-22] MEDS ORDERED: Sodium Chloride 0.9% 1,000 ML ONE (01:34)
[2018-09-22 01:45] LABS: BASO % 0.3 % (0.0-2.0); EOS # 0.3 K/uL (0.0-0.7); EOS % 3.4 % (0.0-4.0); HEMOGLOBIN 12.2 g/dL (11.0-16.0); LYMPH # 3.2 K/uL (1.0-4.3); MEAN CELL VOLUME 91.1 fL (81.0-99.0); MEAN CORPUSCULAR HEMOGLOBIN 31.2 pg (27.0-31.0); MEAN CORPUSCULAR HGB CONC 34.2 g/dL (33.0-37.0); MEAN PLATELET VOLUME 9.8 fL (7.2-11.7); MONO # 0.5 K/uL (0.0-0.8); MONO % 5.7 % (0.0-10.0); NEUT # 5.2 K/uL (1.8-7.0); NEUT % 55.6 % (50.0-75.0); RBC 3.91 Mil/uL (3.80-5.20); RED CELL DISTRIBUTION WIDTH 13.6 % (11.5-14.5); WHITE BLOOD COUNT 9.3 K/uL (4.8-10.8)
[2018-09-22 02:23] LABS: ALB/GLOB RATIO 1.5 (1.0-2.1); ALBUMIN 4.4 g/dL (3.5-5.0); ALT/SGPT 82 U/L (9-52); AST/SGOT 46 U/L (14-36); BLOOD UREA NITROGEN 8 mg/dL (7-17); GFR NON-AFRICAN AMERICAN > 60
[2018-09-22] MEDS ORDERED: Sodium Chloride 0.9% 2,000 ML IV ONE (02:30)
[2018-09-22] MEDS ORDERED: Oxytocin 10 Units/ml Inj ONE ×2 (02:44→04:16)
[2018-09-22] MEDS ORDERED: Oxytocin 10 Units/ml Inj IV ONE (02:45)
--- NOTE | 2018-09-22 02:59 | C.PDOC ---
History Of Present Illness 28 year old female presents to the ER with a complaint of heavy vaginal bleeding and abdominal cramps that began tonight. Patient was seen here on 09/16/18 for , no heart rate or pole was found, she was diagnosed with missed but did not follow up. Denies fever, chills, nausea, or vomiting. Chief Complaint (Nursing): Female Genitourinary History Per: Patient History/Exam Limitations: no limitations Onset/Duration Of Symptoms: Hrs Current Symptoms Are (Timing): Still Present Quality Of Discomfort: Cramping Associated Symptoms: denies: Fever, Chills, Nausea, Vomiting Alleviating Factors: None Recent travel outside of the [place]: No Abnormal Vaginal Bleeding: Yes Past Medical History Reviewed: Historical Data, Nursing Documentation, Vital Signs Vital Signs: Last Vital Signs Temp 98.6 F 09/22/18 01:20 Pulse 70 09/22/18 02:45 Resp 23 09/22/18 02:45 BP 140/62 09/22/18 02:45 Pulse Ox 100 09/22/18 02:45 - Medical History PMH: Asthma Denies: Chronic Kidney Disease Family History: States: Unknown Family Hx - Social History Hx Tobacco Use: No Hx Alcohol Use: No Hx Substance Use: No - Immunization History Hx Tetanus Toxoid Vaccination: Yes Hx Influenza Vaccination: No Hx Pneumococcal Vaccination: No Review Of Systems Constitutional: Negative for: Fever, Chills Cardiovascular: Negative for: Chest Pain, Palpitations Respiratory: Negative for: Cough, Shortness of Breath Gastrointestinal: Positive for: Abdominal Pain (Cramping) Genitourinary: Positive for: Vaginal Bleeding Neurological: Negative for: Weakness, Numbness Physical Exam - Physical Exam Appears: Non-toxic, Other (In discomfort) Skin: Normal Color, Warm, Dry Head: Atraumatic, Normacephalic Eye(s): bilateral: Normal Inspection Oral Mucosa: Moist Chest: Symmetrical, No Tenderness Cardiovascular: Rhythm Regular Respiratory: Normal Breath Sounds, No Rales, No Rhonchi, No Wheezing Gastrointestinal/Abdominal: Soft, No Tenderness Neurological/Psych: Oriented x3, Normal Speech ED Course And Treatment - Laboratory Results Result Diagrams: 09/22/18 01:42 09/22/18 01:42 O2 Sat by Pulse Oximetry: 100 (Room air) Pulse Ox Interpretation: Normal Progress Note: Blood work and pelvis US ordered. IV fluids and morphine ad ministered. OBGYN bonding machine setter was called for consult. She evaluated patient at bedside, accepted patient to her servive for OR and andmission. Disposition - Disposition Disposition: HOSPITALIZED Disposition Time: 03:25 Condition: FAIR - Clinical Impression Clinical Impression: Incomplete , Vaginal bleeding - PA / CLAIMS CLERK / Resident Statement MD/DO has reviewed & agrees with the documentation as recorded. - Scribe Statement The provider has reviewed the documentation as recorded by the Scribe Jan Mcare All medical record entries made by the Scribe were at my direction and personally dictated by me. I have reviewed the chart and agree that the record accurately reflects my personal performance of the history, physical exam, medical decision making, and the department course for this patient. I have also personally directed, reviewed, and agree with the discharge instructions and disposition. Decision To Admit - Pt Status Changed To: Hospital Disposition Of: Inpatient - Admit Certification Admit to Inpatient:: After my assessment, the patient will require hospitalization for at least two midnights. This is because of the severity of symptoms shown, intensity of services needed, and/or the medical risk in this patient being treated as an outpatient. - InPatient: Physician Admission Certification: I certify that this patient requires 2 or more midnights of care for the following reason:: Patient is going to OR. - . Bed Request Type: [employer] [employer] Admitting Physician: Ana A Aurelio Patient Diagnosis: Incomplete , Vaginal bleeding
--- NOTE | 2018-09-22 03:25 | CP.PCM.HP ---
History of Present Illness - History of Present Illness History of Present Illness: Patient is Bruneian-speaking. 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 , LMP 07/01/18, PHIL 04/11/19, EGA 12 weeks presented to [facility] c/o onset of heavy vaginal bleeding at 2200 hours 09/21/18 and strong abdominal pain, "... like contractions when having a baby" onset 2300 hours. In E.[facility] quantitative HCG noted to have decreased from 13,362 on 09/16, now 5,966.6. Pelvic ultrasound 09/16/18 - (+) gestational sac c/w 6w 4d; no yolk sac; no pole; small subchorionic hemorrhage noted. Normal left and right ovaries bilaterally. Not yet initiated care. Patient received in stretcher cubicle #10, in apparent pain - S/P morphine; at bedside. Patient awake, alert, oriented to time person and place. Lasat ate 1800 hours, 09/21/18. P Ob: x 2, both in [facility], between 8 1/2 and 9 lb; 2011, male, 2013, female. P [facility]: 15 x monthly x 5-8. Denies h/o STIs, abnormal Pap, myomata; (+) H/O ovarian cysts. Last Pap 1 1/2-2 years ago. PMH: h/o asthma, onset age 13. Last attack 09/17/18 - used inhaler only. No h/o ICU admissions/intubations. PSH: denies Meds: Albuterol inhaler - PRN Soc Hx: denies tobacco, illicit drug use. Soc EtOH use. x 10 years. Works in a [employer] Fam Hx: Mother alive 47 y.o. no med issues. Father age 37 -lung disorder. Paternal aunt - lung cancer; no h/o tobacco use. Present on Admission - Present on Admission Any Indicators Present on Admission: No Review of Systems - Review of Systems All systems: reviewed and no additional remarkable complaints except - Genitourinary Genitourinary: As Per HPI Past Patient History - Infectious Disease Hx of Infectious Diseases: None - Past Medical History & Family History Past Medical History?: Yes Past Family History: Reviewed and not pertinent - Past Social History Smoking Status: Never Smoked Alcohol: Social Home Situation {Lives}: With Family - CARDIAC Hx Cardiac Disorders: No - PULMONARY Hx Asthma: Yes - NEUROLOGICAL Hx Neurological Disorder: No - HEENT Hx HEENT Problems: No - RENAL Hx Chronic Kidney Disease: No - ENDOCRINE/METABOLIC Hx Endocrine Disorders: No - HEMATOLOGICAL/ONCOLOGICAL Hx Blood Disorders: No - INTEGUMENTARY Hx Dermatological Problems: No - MUSCULOSKELETAL/RHEUMATOLOGICAL Hx Musculoskeletal Disorders: No Hx Falls: No - GASTROINTESTINAL Hx Gastrointestinal Disorders: No - GENITOURINARY/GYNECOLOGICAL Hx Genitourinary Disorders: No - PSYCHIATRIC Hx Substance Use: No - SURGICAL HISTORY Hx Surgeries: No - ANESTHESIA Hx Anesthesia: Yes Hx Anesthesia Reactions: No Meds Allergies/Adverse Reactions: Allergies Allergy/AdvReac Type Severity Reaction Status Date / Time No Known Allergies Allergy Verified 11/18/17 19:00 Physical Exam - Constitutional Appears: No Acute Distress - Head Exam Head Exam: ATRAUMATIC, NORMAL INSPECTION, NORMOCEPHALIC - ENT Exam ENT Exam: Mucous Membranes Moist - Neck Exam Neck exam: Positive for: Full Rom - Respiratory Exam Respiratory Exam: NORMAL BREATHING PATTERN - Cardiovascular Exam Cardiovascular Exam: REGULAR RHYTHM - GI/Abdominal Exam GI & Abdominal Exam: Soft ((+) lower abdominal tenderness to palpation. No rebound tenderness) - Exam Additional comments: (+) large blood clot on examination; (+)moderate vaginal bleeding noted. Cervical os open 1 cm. Uterus 10 weeks, anteverted, soft, mobile, mildly tender. No appreciable adnexal masses or tenderness. - Extremities Exam Extremities exam: Positive for: full ROM, normal inspection - Neurological Exam Neurological exam: Alert, Oriented x3 - Psychiatric Exam Psychiatric exam: Normal Affect, Normal Mood - Skin Skin Exam: Dry, Intact, Normal Color Results - Vital Signs Recent Vital Signs: Last Vital Signs Temp 98.6 F 09/22/18 01:20 Pulse 70 09/22/18 02:45 Resp 23 09/22/18 02:45 BP 140/62 09/22/18 02:45 Pulse Ox 100 09/22/18 03:05 - Labs Result Diagrams: 09/22/18 01:42 09/22/18 01:42 Labs: Laboratory Results - last 24 hr 09/22/18 09/22/18 01:42 01:42 WBC 9.3 RBC 3.91 Hgb 12.2 Hct 35.7 MCV 91.1 MCH 31.2 H MCHC 34.2 RDW 13.6 Plt Count 206 MPV 9.8 Neut % (Auto) 55.6 Lymph % (Auto) 35.0 Routt % (Auto) 5.7 Eos % (Auto) 3.4 Baso % (Auto) 0.3 Neut # (Auto) 5.2 Lymph # (Auto) 3.2 Routt # (Auto) 0.5 Eos # (Auto) 0.3 Baso # (Auto) 0.0 Sodium 135 Potassium 3.4 L Chloride 103 Carbon Dioxide 22 Anion Gap 13 BUN 8 Creatinine 0.6 L Est GFR ( Amer) > 60 Est GFR (Non-Af Amer) > 60 Random Glucose 117 H Calcium 9.0 Total Bilirubin 0.4 AST 46 H D ALT 82 H D Alkaline Phosphatase 86 Total Protein 7.4 Albumin 4.4 Globulin 3.0 Albumin/Globulin Ratio 1.5 Beta HCG, Quant 5966.60 Assessment & Plan - Assessment and Plan (Free Text) Assessment: 28 y.o. , 12 weeks by LMP, presumed missed /blighted ovum, now with severe vaginal bleeding and open cervical os - incomplete spontaneous . Afebrile, vital signs stable. Consent obtained for suction/sharp curettage and possible blood transfusion. Patient is clinically stable. Plan: 1) Admit to [facility] 2) Maintain NPO 3) 20 units pitocin 4) Doxycycline 100 mg IVPB x 1 now 5) On mraibell to O.R. - Date & Time Date: 09/22/18 Time: 03:41
[2018-09-22 03:27] LABS: INR 1.2; PROTHROMBIN TIME 12.8 SECONDS (9.7-12.2)
--- NOTE | 2018-09-22 04:26 | PCM.SURG1 ---
Surgeon's Initial Post Op Note - Surgeon's Notes Surgeon: Ana Carey MD Driver Examiner: Not applicable Type of Anesthesia: General LMA Anesthesia Administered By: Jan Nina MD Pre-Operative Diagnosis: Incomplete ; hemorrhage Operative Findings: Uterus sounded to 12 cm. Cervical os 1 cm. Uterus 12 weeks anteverted, no adnexal masses. Moderate amount of products of conception. Post-Operative Diagnosis: Same Operation Performed: Suction/sharp curettage Specimen/Specimens Removed: Products of conception Estimated Blood Loss: EBL {In ML}: 50 (IVFs 1,000mL LR) Blood Products Given: N/A Drains Used: No Drains Post-Op Condition: Good Date of Surgery/Procedure: 09/22/18 Time of Surgery/Procedure: 04:27
[2018-09-22] MEDS ORDERED: Lactated Ringer's 1,000 ML IV ONE (04:27)
[2018-09-22] MEDS ORDERED: HYDROmorphone 0.5 mg/0.5 ml ISec IVP PRN (04:28)
--- NOTE | 2018-09-22 04:50 | OP ---
PROCEDURE DATE: 09/22/2018 SURGEON: Ana Carey MD BASKET PATCHER: None applicable. ANESTHESIOLOGIST: Jan Nina MD ANESTHESIA TYPE: General LMA. PREOPERATIVE DIAGNOSIS: Incomplete with hemorrhage. POSTOPERATIVE DIAGNOSIS: Incomplete with hemorrhage. OPERATIVE FINDINGS: Anteverted uterus 12 weeks, soft and mobile, no adnexal masses. Uterus sounds to 12 cm and a moderate amount of products of conception. OPERATION PERFORMED: Suction, sharp curettage. SPECIMEN: Products of conception. ESTIMATED BLOOD LOSS: 50 mL. INTRAVENOUS FLUIDS: 1000 mL . The patient received 100 mg of doxycycline en route to the operating room and 20 units of Pitocin in the IV fluids. BLOOD PRODUCTS: None. COMPLICATIONS: None. DESCRIPTION OF PROCEDURE: The patient was taken to the operating room after having obtained informed consent for the anticipated procedure. This included a discussion of possible complications, including, but not limited to infection requiring continued antibiotics, uterine perforation requiring laparoscopy, possible laparotomy, repair of any damage to internal organs, removal of all the diseased tissue. The patient had expressed concern, and her questions were answered. Consent forms were signed, dated, witnessed, and placed in the chart. In the operating room, the patient was placed on the operating room table in a supine position where general anesthesia was administered without incident. She was repositioned into the dorsal lithotomy position in candy-cane stirrups. The vagina was prepped, and she was subsequently draped in the usual sterile fashion. Examination under anesthesia was performed with the findings as above. A weighted speculum was placed in the posterior vaginal vault using a Cortes retractor. The cervix was visualized and was grasped on the anterior lip with a single-tooth tenaculum. The uterus was sounded with the findings as above. A 10 cm suction curette was inserted without incident. It was attached to suction device which was activated. The uterus was emptied of its contents. Sharp curettage was performed until a gritty texture was obtained. The repeat suction was performed. The uterus was noted to be contracted around the suction tip. All instruments were removed. Bimanual massage was performed. The uterus was contracted from approximately 10 weeks in size. The patient was extubated, allowed to arise from anesthesia, and transferred to the postanesthesia care unit in stable condition. Ana MD [facility] # [id number]
[2018-09-22 06:25] VITALS: RESP 18
--- NOTE | 2018-09-22 08:23 | CP.PCM.PN ---
<JoseCristiano Segundo - Last Filed: 09/22/18 08:36> Subjective - Date & Time of Evaluation Date of Evaluation: 09/22/18 Time of Evaluation: 08:21 - Subjective Subjective: Pt is a 28yo female with a PMH of asthma who presents with vaginal bleeding and abdominal pain. Today she reports improved vaginal bleeding of dark red blood and improved 6/10 abdominal pain which she rates at a 6/10 and comes and goes. Pt denies nausea and vomiting. Objective - Vital Signs/Intake and Output Vital Signs (last 24 hours): Temp Pulse Resp BP Pulse Ox 98.1 F 71 18 102/66 71 L 09/22/18 06:00 09/22/18 06:00 09/22/18 06:00 09/22/18 06:00 09/22/18 06:00 Intake and Output: 09/22/18 09/22/18 06:59 18:59 Intake Total 1125 Output Total 500 Balance 625 - Medications Medications: Current Medications Hydromorphone HCl (Dilaudid) 0.5 mg IVP Q15M PRN PRN Reason: Pain, severe (8-10) Doxycycline Hyclate 100 mg/ (Sodium Chloride) 100 mls @ 100 mls/hr IVPB Q12H SC H; Protocol Last Admin: 09/22/18 03:38 Dose: 100 mls/hr Oxytocin (Pitocin 20 Units In Lr) 1,000 mls @ 125 mls/hr IV .Q8H FRANCO; Protocol Last Admin: 09/22/18 06:13 Dose: 125 mls/hr Ibuprofen (Motrin Tab) 600 mg PO Q6 PRN PRN Reason: pain, moderate - Labs Labs: 09/22/18 01:42 09/22/18 01:42 PT 12.8 SECONDS (9.7-12.2) H 09/22/18 03:20 INR 1.2 09/22/18 03:20 APTT 28 SECONDS (21-34) 09/22/18 03:20 - Constitutional Appears: No Acute Distress - Head Exam Head Exam: ATRAUMATIC, NORMOCEPHALIC - Eye Exam Eye Exam: EOMI - ENT Exam ENT Exam: Mucous Membranes Moist - Neck Exam Neck Exam: Full ROM - Respiratory Exam Respiratory Exam: Clear to Ausculation Bilateral, NORMAL BREATHING PATTERN. absent: Accessory Muscle Use, Wheezes, Respiratory Distress, Stridor - Cardiovascular Exam Cardiovascular Exam: RRR, +S1, +S2. absent: Diastolic murmur, JVD - GI/Abdominal Exam GI & Abdominal Exam: Soft, Normal Bowel Sounds - Extremities Exam Extremities Exam: Full ROM. absent: Pedal Edema, Tenderness - Neurological Exam Neurological Exam: Alert, Awake, Oriented x3 - Psychiatric Exam Psychiatric exam: Normal Affect, Normal Mood - Skin Skin Exam: Dry, Intact, Warm Assessment and Plan - Assessment and Plan (Free Text) Assessment: 28yo female with a PMH of asthma who presents with vaginal bleeding and abdominal pain. Pt received a D/C last night. Plan: Status post dilation and curettage - pt reports bleeding is improving - pain is improving - continue motrin for pain control - continue doxycycline - regular diet Pt seen, examined, assessment and plan discussed with Dr Drew Garcia PGY1, Internal Medicine Resident <Elsy Renee - Last Filed: 09/22/18 14:12> Objective - Vital Signs/Intake and Output Vital Signs (last 24 hours): Temp Pulse Resp BP Pulse Ox 98.4 F 70 18 104/58 L 99 09/22/18 07:30 09/22/18 07:30 09/22/18 07:30 09/22/18 07:30 09/22/18 07:30 Intake and Output: 09/22/18 09/22/18 06:59 18:59 Intake Total 1125 320 Output Total 500 Balance 625 320 - Medications Medications: Current Medications Hydromorphone HCl (Dilaudid) 0.5 mg IVP Q15M PRN PRN Reason: Pain, severe (8-10) Doxycycline Hyclate 100 mg/ (Sodium Chloride) 100 mls @ 100 mls/hr IVPB Q12H FRANCO; Protocol Last Admin: 09/22/18 03:38 Dose: 100 mls/hr Oxytocin (Pitocin 20 Units In Lr) 1,000 mls @ 125 mls/hr IV .Q8H FRANCO; Protocol Last Admin: 09/22/18 06:13 Dose: 125 mls/hr Ibuprofen (Motrin Tab) 600 mg PO Q6 PRN PRN Reason: pain, moderate Last Admin: 09/22/18 10:22 Dose: 600 mg - Labs Labs: 09/22/18 11:08 09/22/18 01:42 PT 12.8 SECONDS (9.7-12.2) H 09/22/18 03:20 INR 1.2 09/22/18 03:20 APTT 28 SECONDS (21-34) 09/22/18 03:20 Assessment and Plan - Assessment and Plan (Free Text) Plan: Addendum: 28yo F s/p D&C for Incomplete Ebl: 500cc stable and afebrile Hb 12.2-->9, pt denies chest pain, SOB, dizziness bleeding WNL DC home with follow up in [facility] [phone] in 2 weeks for follow up visit Sophie Renee D.O.
[2018-09-22 08:37] VITALS: BP 104/58; PULSE 70; TEMP 98.4; O2SAT 99
[2018-09-22 11:18] LABS: BASO % 0.3 % (0.0-2.0); EOS # 0.2 K/uL (0.0-0.7); EOS % 2.3 % (0.0-4.0); LYMPH # 2.3 K/uL (1.0-4.3); LYMPH % 28.8 % (20.0-40.0); MEAN CELL VOLUME 91.2 fL (81.0-99.0); MEAN CORPUSCULAR HEMOGLOBIN 31.1 pg (27.0-31.0); MEAN CORPUSCULAR HGB CONC 34.1 g/dL (33.0-37.0); MEAN PLATELET VOLUME 9.9 fL (7.2-11.7); MONO # 0.4 K/uL (0.0-0.8); MONO % 4.9 % (0.0-10.0); NEUT % 63.7 % (50.0-75.0); RBC 2.9 Mil/uL (3.80-5.20); RED CELL DISTRIBUTION WIDTH 13.4 % (11.5-14.5); WHITE BLOOD COUNT 7.9 K/uL (4.8-10.8)
--- NOTE | 2018-09-22 14:20 | CP.PCM.DIS ---
Provider - Provider Date of Admission: 09/22/18 03:06 Attending physician: Ana Carey MD Time Spent in preparation of Discharge (in minutes): 35 Diagnosis - Discharge Diagnosis (1) S/P dilation and curettage Status: Acute Hospital Course - Lab Results Lab Results: Most Recent Lab Values WBC 7.9 K/uL (4.8-10.8) 09/22/18 11:08 RBC 2.90 Mil/uL (3.80-5.20) L 09/22/18 11:08 Hgb 9.0 g/dL (11.0-16.0) L D 09/22/18 11:08 Hct 26.4 % (34.0-47.0) L 09/22/18 11:08 MCV 91.2 fL (81.0-99.0) 09/22/18 11:08 MCH 31.1 pg (27.0-31.0) H 09/22/18 11:08 MCHC 34.1 g/dL (33.0-37.0) 09/22/18 11:08 RDW 13.4 % (11.5-14.5) 09/22/18 11:08 Plt Count 153 K/uL (130-400) 09/22/18 11:08 MPV 9.9 fL (7.2-11.7) 09/22/18 11:08 Neut % (Auto) 63.7 % (50.0-75.0) 09/22/18 11:08 Lymph % (Auto) 28.8 % (20.0-40.0) 09/22/18 11:08 Wright % (Auto) 4.9 % (0.0-10.0) 09/22/18 11:08 Eos % (Auto) 2.3 % (0.0-4.0) 09/22/18 11:08 Baso % (Auto) 0.3 % (0.0-2.0) 09/22/18 11:08 Neut # (Auto) 5.0 K/uL (1.8-7.0) 09/22/18 11:08 Lymph # (Auto) 2.3 K/uL (1.0-4.3) 09/22/18 11:08 Wright # (Auto) 0.4 K/uL (0.0-0.8) 09/22/18 11:08 Eos # (Auto) 0.2 K/uL (0.0-0.7) 09/22/18 11:08 Baso # (Auto) 0.0 K/uL (0.0-0.2) 09/22/18 11:08 PT 12.8 SECONDS (9.7-12.2) H 09/22/18 03:20 INR 1.2 09/22/18 03:20 APTT 28 SECONDS (21-34) 09/22/18 03:20 Sodium 135 mmol/L (132-148) 09/22/18 01:42 Potassium 3.4 mmol/L (3.6-5.2) L 09/22/18 01:42 Chloride 103 mmol/L (98-107) 09/22/18 01:42 Carbon Dioxide 22 mmol/L (22-30) 09/22/18 01:42 Anion Gap 13 (10-20) 09/22/18 01:42 BUN 8 mg/dL (7-17) 09/22/18 01:42 Creatinine 0.6 mg/dL (0.7-1.2) L 09/22/18 01:42 Est GFR ( Amer) > 60 09/22/18 01:42 Est GFR (Non-Af Amer) > 60 09/22/18 01:42 POC Glucose (mg/dL) 99 mg/dL (65-110) 09/22/18 03:21 Random Glucose 117 mg/dL (65-105) H 09/22/18 01:42 Calcium 9.0 mg/dl (8.6-10.4) 09/22/18 01:42 Total Bilirubin 0.4 mg/dL (0.2-1.3) 09/22/18 01:42 AST 46 U/L (14-36) H D 09/22/18 01:42 ALT 82 U/L (9-52) H D 09/22/18 01:42 Alkaline Phosphatase 86 U/L (38-126) 09/22/18 01:42 Total Protein 7.4 g/dL (6.3-8.3) 09/22/18 01:42 Albumin 4.4 g/dL (3.5-5.0) 09/22/18 01:42 Globulin 3.0 gm/dL (2.2-3.9) 09/22/18 01:42 Albumin/Globulin Ratio 1.5 (1.0-2.1) 09/22/18 01:42 Beta HCG, Quant 5966.60 mIU/ML 09/22/18 01:42 Blood Type O POSITIVE 09/22/18 03:03 Antibody Screen Negative 09/22/18 03:03 - Hospital Course Hospital Course: Pt is a 28 yo , LMP 07/01/18, who presented to the ED c/o onset of heavy vaginal bleeding at 2200 hours 09/21/18 and strong abdominal pain, which she described as "... like contractions when having a baby" onset 2300 hours. Quantitative HCG noted to have decreased from 13,362 on 09/16, now 5,966.6. Pelvic ultrasound from 09/16/18 shows (+) gestational sac c/w 6w 4d; no yolk sac; no pole; small subchorionic hemorrhage noted. Pt has not yet initiated care. Pt was received in [facility] in apparent pain - S/P morphine. Pt had a d/c performed by Dr Carey while admitted. Pt recovering well, vaginal bleeding is improving. Pt given 2 doses of IV Vibramycin. Pt advised to follow up with [facility]. Advised to return to emergency department if symptoms return or worsen. Pt seen and examined, ready to be discharged home. - Date & Time of H&P Date of H&P: 09/22/18 Time of H&P: 14:20 Discharge Exam - Head Exam Head Exam: ATRAUMATIC, NORMOCEPHALIC - Eye Exam Eye Exam: EOMI - ENT Exam ENT Exam: Mucous Membranes Moist - Respiratory Exam Respiratory Exam: Clear to PA & Lateral, NORMAL BREATHING PATTERN. absent: Accessory Muscle Use, Wheezes, Respiratory Distress - Cardiovascular Exam Cardiovascular Exam: +S1, +S2. absent: Diastolic murmur, JVD, Systolic Murmur - GI/Abdominal Exam GI & Abdominal Exam: Normal Bowel Sounds, Unremarkable - Extremities Exam Extremities exam: full ROM, pedal pulses present - Neurological Exam Neurological exam: Alert, Oriented x3 - Skin Skin Exam: Dry, Intact, Warm Discharge Plan - Follow Up Plan Condition: FAIR Disposition: HOME/ ROUTINE Additional Instructions: 1. please discharge pt after second dose of doxycycline is given at 3:15pm today 2. please follow up with the [facility] 3. if your symptoms return or worsen, please go the nearest emergency department as soon as possible
[2018-09-22] MEDS ORDERED: Influenza Vaccine 60 MCG/0.5 ML SYR (3 yr & up) IM ONE (16:20)
== END 2018-09-22 17:45 | disposition home or self-care (01) | DRG 544 ==
LOC: C.ER 01:17 → C.4M 03:06
PROVIDERS: ADMIT Obstetrics & Gynecology; ATTEND Obstetrics & Gynecology
PROC: 10D17Z9 Manual Extraction of Products of Conception, Retained, Via Natural or Artificial Opening (ICD-10-PCS; principal; 2018-09-22 04:00)
DX: O03.6 Delayed or excessive hemorrhage following complete or unspecified spontaneous abortion (principal); J45.909 Unspecified asthma, uncomplicated; N85.4 Malposition of uterus